=== PATIENT | male | born 1995 | race Caucasian/White ===

== ENCOUNTER 2017-08-16 17:06 | Emergency (ER) | payer OTHER ==
--- NOTE | 2017-08-16 17:16 | PDOC ---
Rapid Medical Evaluation Chief Complaint: Injury Time Seen by Provider: 08/16/17 17:15 Medical Evaluation: Allergies Allergy/AdvReac Type Severity Reaction Status Date / Time No Known Allergies Allergy Verified 08/16/17 17:15 08/16/17 17:15 The patient presents with a chief complaint of: ankle I have performed a brief in-person evaluation of this patient. Pertinent physical exam findings: vss, stable I have ordered the following: motrin, xrays The patient will proceed to the ED for further evaluation. Discharge Disposition - Referrals Referrals: Ilya Galvin MD [Primary Care Provider] - - Patient Instructions - Post Discharge Activity
[2017-08-16 17:17] VITALS: BP 137/85; PULSE 100; TEMP 98.6; BMI 27.3
[2017-08-16] MEDS ORDERED: IBUPROFEN 600 MG TABLET (FP) PO ONE ×2 (17:17→17:26)
--- NOTE | 2017-08-16 18:21 | PDOC ---
History of Present Illness - General Chief Complaint: Injury Stated Complaint: ANKLE INJURY Time Seen by Provider: 08/16/17 17:15 History Source: Patient Exam Limitations: No Limitations - History of Present Illness Initial Comments: 08/16/17 18:16 CHIEF COMPLAINT: Right ankle injury HISTORY OF PRESENT ILLNESS: Patient is a 21-year-old male denies any significant medical history currently on no medication hitting the right lateral ankle. Now with pain with ambulation, there is no erythema edema or deformity. Occurred: reports: just prior to arrival Severity: Yes: mild Lower Extremity Pain Location: right: ankle Method of Injury: Yes: twisted Modifying Factors: improves with: None Lower Ext. Injury Location - Specific Injury Location Ankle: right pain Past History - Past Medical History Allergies/Adverse Reactions: Allergies Allergy/AdvReac Type Severity Reaction Status Date / Time No Known Allergies Allergy Verified 08/16/17 17:15 Home Medications: Ambulatory Orders Ibuprofen [Motrin -] 600 mg PO QID #20 tablet 08/16/17 COPD: No - Immunization History Immunization Up to Date: Yes - Suicide/Smoking/Psychosocial Hx Smoking History: Never smoked Hx Alcohol Use: No Drug/Substance Use Hx: No Review of Systems - Review of Systems Constitutional: No: Symptoms Reported Respiratory: No: Symptoms reported Cardiac (ROS): No: Symptoms Reported Musculoskeletal: Yes: Joint Pain. No: Joint Swelling, Muscle Pain, Muscle Weakness Integumentary: No: Symptoms Reported, Bruising, Erythema Neurological: No: Symptoms reported, Paresthesia, Tingling, Tremors All Other Systems: Reviewed and Negative *Physical Exam - Vital Signs Last Vital Signs Temp Pulse Resp BP Pulse Ox 98.6 F 100 H 18 137/85 99 08/16/17 17:15 08/16/17 17:15 08/16/17 17:15 08/16/17 17:15 08/16/17 17:15 - Physical Exam General Appearance: Yes: Appropriately Dressed. No: Apparent Distress Neck: negative: Tender lateral, Tender midline Respiratory/Chest: positive: Lungs Clear, Normal Breath Sounds. negative: Respiratory Distress, Accessory Muscle Use Cardiovascular: positive: Regular Rhythm, Regular Rate Lymphatic: negative: Adenopathy Musculoskeletal: positive: Normal Inspection, Decreased Range of Motion ( related to pain) Extremity: positive: Normal Inspection (no physical trauma injury), Normal Range of Motion (with associated pain). negative: Tender, Swelling, Calf Tenderness, Erythema, Inflammation Integumentary: positive: Normal Color, Dry. negative: Erythema, Swelling, Ecchymosis, Bruising Neurologic: positive: Alert, Normal Mood/Affect, Normal Response, Motor Strength 5/5 ED Treatment Course - Medications Given in the ED: ED Medications Discontinued Medications Generic Name Dose Route Start Last Admin Trade Name Tj PRN Reason Stop Dose Admin Ibuprofen 600 mg 08/16/17 17:17 08/16/17 17:36 Motrin - PO 08/16/17 17:18 600 mg ONCE ONE Administration Medical Decision Making - Medical Decision Making 08/16/17 18:20 A/P: Patient with injury to right ankle sent to x-ray. 08/16/17 18:54 X-ray demonstrates a vertical lucency in the posterior malleolus its favored to be vascular channel or artifact rather than a nondisplaced fracture, given the lack of soft tissue edema in the region. There is no evidence of acute fracture dislocation will apply Mike wrap and Aircast, Motrin for pain, follow-up with orthopedics in one week if pain persists. *DC/Admit/Observation/Transfer Diagnosis at time of Disposition: Ankle injury Qualifiers: Encounter type: initial encounter Laterality: right Qualified Code(s): S99.911A - Unspecified injury of right ankle, initial encounter - Discharge Dispostion Disposition: HOME Condition at time of disposition: Stable Admit: No - Prescriptions Prescriptions: Ibuprofen [Motrin -] 600 mg PO QID #20 tablet - Referrals Referrals: Ilya Galvin MD [Primary Care Provider] - William Olguin MD [Staff Physician] - - Patient Instructions Printed Discharge Instructions: Ankle Sprain Additional Instructions: 1. Please return to the emergency department with any redness, swelling, increased pain, or any other concerns. 2. Keep splint on. 3. Please follow up in the office of Dr. Olguin within a week if pain persists. 4. No weightbearing 5. Ice and elevate when at rest. 6. Motrin for pain - Post Discharge Activity Forms/Work/School Notes: Back to Work
== END 2017-08-16 19:08 | disposition home or self-care (01) ==
LOC: JERFT 17:06
PROC: 2W3QX1Z Immobilization of Right Lower Leg using Splint (ICD-10-PCS; principal; 2017-08-16)
DX: S99.811A Other specified injuries of right ankle, initial encounter (principal); X50.1XXA Overexertion from prolonged static or awkward postures, initial encounter; Y93.89 Activity, other specified; Y92.89 Other specified places as the place of occurrence of the external cause; Y99.8 Other external cause status
CPT/HCPCS: 29515; 73610-TC-RT-FY; 73630-TC-RT-FY; 99281-25

== ENCOUNTER → 2022-10-26 | Day surgery (SDC) | payer OTHER | END | disposition home or self-care (01) | LOC: JRADIR 08:16 | PROVIDERS: ATTEND Internal Medicine Endocrinology, Diabetes & Metabolism | PROC: 0G9H3ZX Drainage of Right Thyroid Gland Lobe, Percutaneous Approach, Diagnostic (ICD-10-PCS; principal; 2022-10-26) | DX: E04.1 Nontoxic single thyroid nodule (principal) | CPT/HCPCS: 10005; 76942; 88173; 88305-TC ==

== ENCOUNTER 2023-05-06 04:09 | Day surgery (SDC) | payer OTHER ==
[2023-05-04 14:00] VITALS: BMI 30.5
[2023-05-06] MEDS ORDERED: MIDAZOLAM HCL 2 MG/2 ML SINGLE DOSE VIAL ONE (07:10)
[2023-05-06] MEDS ORDERED: PROPOFOL 40 ML ONE (07:10)
[2023-05-06] MEDS ORDERED: BUPIVACAINE HCL/PF 0.5% (5MG/ML) 10 ML VIAL ONE (07:16)
[2023-05-06] MEDS ORDERED: LIDOCAINE 1%/EPI 1:100000 (20 ML MULTI DOSE VIAL) ONE (07:17)
[2023-05-06] MEDS ORDERED: ACETAMINOPHEN 325 MG TABLET (FP) PO PRN (07:22)
[2023-05-06] MEDS ORDERED: ONDANSETRON 4 MG/2 ML VIAL IVPUSH PRN (07:22)
[2023-05-06] MEDS ORDERED: oxyCODONE HCL 5 MG TABLET PO PRN ×2 (07:22)
[2023-05-06] MEDS ORDERED: LACTATED RINGERS SOLUTION 1,000 ML IV SCH (07:30)
[2023-05-06] MEDS ORDERED: LIDOCAINE 1%/EPI 1:100000 (20 ML MULTI DOSE VIAL) IJ ONE ×2 (07:47)
[2023-05-06] MEDS ORDERED: BUPIVACAINE HCL/PF 0.5% (5MG/ML) 10 ML VIAL IJ ONE ×2 (07:49)
[2023-05-06] MEDS ORDERED: ceFAZolin SODIUM 1 GM VIAL ONE ×2 (08:19)
[2023-05-06] MEDS ORDERED: ceFAZolin SODIUM 1 GM VIAL IVPB ONE (08:20)
[2023-05-06] MEDS ORDERED: DEXAMETHASONE SOD PHOSPHATE 4 MG/1 ML VIAL ONE (08:24)
[2023-05-06] MEDS ORDERED: ONDANSETRON 4 MG/2 ML VIAL ONE (08:25)
[2023-05-06] MEDS ORDERED: KETOROLAC TROMETHAMINE 30 MG/1 ML VIAL ONE (08:25)
[2023-05-06] MEDS ORDERED: MICROFIBRILLAR COLLAGEN 1 GM EACH NR ONE (08:55)
[2023-05-06] MEDS ORDERED: HYDROmorphone HCl 2 MG/ML VIAL ONE (08:58)
[2023-05-06 14:55] VITALS: RESP 18
[2023-05-06 14:57] VITALS: BP 123/82; PULSE 74; TEMP 98.1
== END 2023-05-06 13:10 | disposition home or self-care (01) ==
LOC: JASU-SURG 04:09
PROVIDERS: ATTEND Surgery
PROC: 0GSR0ZZ Reposition Parathyroid Gland, Open Approach (ICD-10-PCS; 2023-05-06)
PROC: 0GTH0ZZ Resection of Right Thyroid Gland Lobe, Open Approach (ICD-10-PCS; principal; 2023-05-06 08:00)
DX: E04.2 Nontoxic multinodular goiter (principal)
CPT/HCPCS: 88307-TC; 94760